=== PATIENT | male | born 2005 | race Caucasian/White ===

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

== ENCOUNTER 2024-11-25 19:02 | Emergency (ER) | payer OTHER ==
[~2024-11-25] VITALS: Ht 167.6 cm; Wt 51.2 kg
[~2024-11-25 19:02] MED LIST changes: +DEBROX6.5 % AS
[2024-11-25] MEDS ORDERED: Diph, Acellular Pertussis, Tet 0.5 ML/VIAL (Tdap) SDV IM ONE (19:40)
[2024-11-25 22:00] VITALS: BP 129/83
== END 2024-11-25 22:00 | disposition home or self-care (01) | DRG 125 ==
LOC: ED 19:02
DX: S01.111A Laceration without foreign body of right eyelid and periocular area, initial encounter (principal); V43.62XA Car passenger injured in collision with other type car in traffic accident, initial encounter; S60.032A Contusion of left middle finger without damage to nail, initial encounter; S70.12XA Contusion of left thigh, initial encounter
CPT/HCPCS: 12011; G0168; 90715